=== PATIENT | male | born 2000 ===

== ENCOUNTER 2024-11-26 08:27 | Outpatient (CLI) | payer BC, MEDICARE | END 2024-11-26 08:28 | disposition home or self-care (01) | LOC: ULT 08:27 | PROVIDERS: ATTEND Urology | DX: N31.9 Neuromuscular dysfunction of bladder, unspecified (principal); R93.41 Abnormal radiologic findings on diagnostic imaging of renal pelvis, ureter, or bladder | CPT/HCPCS: 76770 ==